=== PATIENT | male | born 1990 | race African-American/Black ===

== ENCOUNTER 2024-02-18 12:33 | Outpatient (REF) | payer MEDICAID, SELFPAY ==
[2024-02-19 07:03] LABS: HBS Num1 > 1000.00 mIU/mL (0-7.99); ~Hepatitis B Surface Antibody REACTIVE (Nonreactive)
[2024-02-19 19:54] LABS: Varicella IgG Antibody 7.79 S/CO
[2024-02-21 22:19] LABS: TS Negative Control Passed; TS Panel A 0; TS Panel B 1; TS Positive Control Passed; TSpotTB Negative (Negative)
== END 2024-02-18 12:34 | disposition home or self-care (01) ==
LOC: HO.LAB 12:33
PROVIDERS: Visit Provider Internal Medicine
DX: Z02.1 Encounter for pre-employment examination (principal)
CPT/HCPCS: 36415; 86481; 86706; 86787

== ENCOUNTER 2024-07-05 16:17 | Outpatient (REF) | payer MEDICAID, SELFPAY ==
[2024-07-05 16:43] LABS: IDNOW Serial# 55D5AD1C; Strep A Nucleic Acid Negative (Negative)
== END 2024-07-05 16:18 | disposition home or self-care (01) ==
LOC: HO.LAB 16:17
PROVIDERS: Referring Provider Physician Assistant; Visit Provider Physician Assistant
DX: J02.9 Acute pharyngitis, unspecified (principal)
CPT/HCPCS: 87651